=== PATIENT | female | born 1950 | race Caucasian/White ===

== ENCOUNTER 2024-01-20 11:48 | Inpatient (IN) | payer MEDICARE, OTHER ==
[2024-01-20] MEDS ORDERED: Bisacodyl 5 MG TAB PO PRN (11:59)
[2024-01-20] MEDS ORDERED: Acetaminophen 325 MG TAB PO PRN ×2 (11:59→13:22)
[2024-01-20] MEDS ORDERED: Ondansetron ODT 4 MG TAB SL PRN (11:59)
[2024-01-20] MEDS ORDERED: HYDROcodone/Acetaminophen 5/325 mg Tablet PO PRN (13:22)
[2024-01-20] MEDS: Ergocalciferol 1.25 MG(50,000 UNITS) CAP PO SCH (15:33)
[2024-01-20] MEDS: Ibuprofen 800 MG TAB PO SCH (15:33)
[2024-01-20] MEDS: Senokot S 8.6-50 MG TAB PO PRN (16:17)
[2024-01-20] MEDS: HYDROcodone/Acetaminophen 10/325 mg Tablet PO PRN (16:30)
[2024-01-20] MEDS: Famotidine 20 MG TAB PO SCH (21:24)
[2024-01-21 05:38] LABS: #Basophils 0.1 thou/uL (0.0-0.2); #Eosinophils 0.2 thou/uL (0.0-0.7); #Lymphocytes 1.1 thou/uL (1.20-3.40); #Monocytes 0.5 thou/uL (0.11-0.59); #Neutrophils 2.5 thou/uL (1.40-6.50); %Basophils 1.4 % (0.0-1.0); %Eosinophils 4.9 % (0.0-10.0); %Lymphocytes 24.6 % (21.0-51.0); %Monocytes 11.4 % (0.0-10.0); %Neutrophils 57.8 % (42.0-75.0); Hematocrit 29.5 % (36.0-47.0); Mean Corpuscular HGB CONC 34.1 g/dL (32.0-36.0); Mean Corpuscular Hemoglobin 30.5 pg (27.0-31.0); Mean Corpuscular Volume 89.4 fl (78.0-98.0); Mean Platelet Volume 6.7 fL (7.4-10.4); Platelet Count 149 10x3/uL (130-400); RBC Distribution Width 11.8 % (11.5-14.5); Red Blood Cell (RBC) Count 3.29 mill/uL (4.20-5.40); White Blood Cell (WBC) Count 4.3 10x3/uL (4.8-10.8)
[2024-01-21 05:56] LABS: ALT (SGPT) 339 U/L (8-55); AST (SGOT) 91 U/L (5-34); Albumin 2.6 g/dL (3.4-4.8); Alkaline Phosphatase 198 U/L (40-110); Anion Gap 11 mmol/L (10-20); BUN (Urea Nitrogen) 6 mg/dL (9.8-20.1); Bilirubin, Total 0.7 mg/dL (0.2-1.2); Calc. Creatinine Clearance 91 mL/min (70-130); Calcium 8.7 mg/dL (7.8-10.44); Carbon Dioxide 27 mmol/L (23-31); Chloride 106 mmol/L (98-107); Estimated GFR 93; Globulin 2.8 g/dL (2.4-3.5); Glucose 100 mg/dL (83-110); Protein, Total 5.4 g/dL (5.8-8.1); Sodium 140 mmol/L (136-145)
[2024-01-21] MEDS: Levothyroxine Sodium 50 MCG TAB PO SCH (06:10)
[2024-01-21] MEDS: traMADol HCl 50 MG TAB PO PRN (08:44)
[2024-01-21] MEDS: Citalopram 20 MG TAB PO SCH (08:45)
[2024-01-21] MEDS: Enoxaparin 40 MG (0.4 mL) SYRINGE SC SCH (08:46)
[2024-01-21] MEDS: Calcium Carbonate 500 MG TAB PO SCH (08:46)
[2024-01-21] MEDS ORDERED: Cholecalciferol 1,000 UNITS (25 MCG) TAB PO SCH (09:00)
[2024-01-22] MEDS ORDERED: diphenhydrAMINE 25 MG CAP PO PRN (09:26)
[2024-01-23 05:52] LABS: ALT (SGPT) 190 U/L (8-55); AST (SGOT) 47 U/L (5-34); Albumin 2.7 g/dL (3.4-4.8); Alkaline Phosphatase 220 U/L (40-110); Anion Gap 12 mmol/L (10-20); BUN (Urea Nitrogen) 8 mg/dL (9.8-20.1); Bilirubin, Total 0.5 mg/dL (0.2-1.2); Calc. Creatinine Clearance 80 mL/min (70-130); Carbon Dioxide 29 mmol/L (23-31); Chloride 103 mmol/L (98-107); Estimated GFR 85; Globulin 3.2 g/dL (2.4-3.5); Glucose 89 mg/dL (83-110); Potassium 4.2 mmol/L (3.5-5.1); Protein, Total 5.9 g/dL (5.8-8.1); Sodium 140 mmol/L (136-145)
[2024-01-26 05:51] VITALS: BMI 26.8
[2024-01-26 06:04] LABS: #Basophils 0.1 thou/uL (0.0-0.2); #Eosinophils 0.2 thou/uL (0.0-0.7); #Lymphocytes 1.1 thou/uL (1.20-3.40); #Monocytes 0.6 thou/uL (0.11-0.59); #Neutrophils 2.6 thou/uL (1.40-6.50); %Basophils 1.9 % (0.0-1.0); %Eosinophils 5.1 % (0.0-10.0); %Lymphocytes 23.1 % (21.0-51.0); %Monocytes 13.7 % (0.0-10.0); %Neutrophils 56.3 % (42.0-75.0); Hematocrit 31.5 % (36.0-47.0); Hemoglobin 10.2 g/dL (12.0-16.0); Mean Corpuscular HGB CONC 32.5 g/dL (32.0-36.0); Mean Corpuscular Hemoglobin 29.6 pg (27.0-31.0); Mean Platelet Volume 5.2 fL (7.4-10.4); Platelet Count 261 10x3/uL (130-400); RBC Distribution Width 12.2 % (11.5-14.5); Red Blood Cell (RBC) Count 3.46 mill/uL (4.20-5.40); White Blood Cell (WBC) Count 4.7 10x3/uL (4.8-10.8)
[2024-01-26 06:19] LABS: ALT (SGPT) 157 U/L (8-55); AST (SGOT) 77 U/L (5-34); Albumin 2.8 g/dL (3.4-4.8); Alkaline Phosphatase 170 U/L (40-110); Anion Gap 11 mmol/L (10-20); BUN (Urea Nitrogen) 11 mg/dL (9.8-20.1); Bilirubin, Total 0.3 mg/dL (0.2-1.2); Calc. Creatinine Clearance 78 mL/min (70-130); Calcium 9.2 mg/dL (7.8-10.44); Carbon Dioxide 27 mmol/L (23-31); Chloride 107 mmol/L (98-107); Estimated GFR 85; Globulin 2.9 g/dL (2.4-3.5); Glucose 91 mg/dL (83-110); Potassium 4.3 mmol/L (3.5-5.1); Protein, Total 5.7 g/dL (5.8-8.1); Sodium 141 mmol/L (136-145)
[2024-01-27] MEDS: Ergocalciferol 1.25 MG(50,000 UNITS) CAP PO SCH (09:01)
[2024-01-29 06:05] LABS: ALT (SGPT) 103 U/L (8-55); AST (SGOT) 29 U/L (5-34); Albumin 3.1 g/dL (3.4-4.8); Alkaline Phosphatase 149 U/L (40-110); Anion Gap 13 mmol/L (10-20); BUN (Urea Nitrogen) 11 mg/dL (9.8-20.1); Bilirubin, Total 0.3 mg/dL (0.2-1.2); Calc. Creatinine Clearance 81 mL/min (70-130); Calcium 9.4 mg/dL (7.8-10.44); Carbon Dioxide 23 mmol/L (23-31); Chloride 108 mmol/L (98-107); Estimated GFR 87; Globulin 2.9 g/dL (2.4-3.5); Glucose 96 mg/dL (83-110); Potassium 4.1 mmol/L (3.5-5.1); Sodium 140 mmol/L (136-145)
[2024-01-29] MEDS: Loratadine 10 MG TAB PO PRN (20:44)
[2024-01-30 10:51] VITALS: BMI 27.5
[2024-01-30] MEDS: Guaifenesin DM 100-10/5 ML UDCUP PO PRN (11:04)
[2024-01-30] MEDS: Benzocaine/Menthol 1 LOZ LOZ PO PRN (11:05)
[2024-01-31 07:56] VITALS: BP 101/55; TEMP 98.2
== END 2024-01-31 12:45 | disposition home or self-care (01) | DRG 561 ==
LOC: NAV ACUTE 14:27
PROVIDERS: ADMIT Family Medicine; ATTEND Family Medicine
PROC: F07Z9ZZ Gait Training/Functional Ambulation Treatment (ICD-10-PCS; principal; 2024-01-26)
DX: Z47.1 Aftercare following joint replacement surgery (principal); F32.A Depression, unspecified; E03.9 Hypothyroidism, unspecified; F41.9 Anxiety disorder, unspecified; M19.90 Unspecified osteoarthritis, unspecified site; R74.01 Elevation of levels of liver transaminase levels; Z96.643 Presence of artificial hip joint, bilateral; L29.9 Pruritus, unspecified; Z90.49 Acquired absence of other specified parts of digestive tract; Z90.710 Acquired absence of both cervix and uterus; Z88.2 Allergy status to sulfonamides; Z88.7 Allergy status to serum and vaccine; Z79.1 Long term (current) use of non-steroidal anti-inflammatories (NSAID); Z79.899 Other long term (current) drug therapy; Z79.890 Hormone replacement therapy; Z79.891 Long term (current) use of opiate analgesic; M16.12 Unilateral primary osteoarthritis, left hip
CPT/HCPCS: 36415; 80053; 85025; J1650